=== PATIENT | male | born 2000 | race Caucasian/White ===

== ENCOUNTER 2021-11-20 19:19 | Emergency (ER) | payer MEDICAID, SELFPAY ==
[2021-11-20 19:24] VITALS: BP 135/85; PULSE 85; RESP 16; TEMP 36.4; O2SAT 98
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
[2021-11-20] MEDS: cephALEXin 500 mg Capsule PO (20:02)
[2021-11-20 20:20] VITALS: RESP 16
== END 2021-11-20 20:20 | disposition home or self-care (01) ==
PROVIDERS: Emergency Provider Nurse Practitioner Family; PCP Family Medicine
DX: S01.81XA Laceration without foreign body of other part of head, initial encounter (principal); Y04.2XXA Assault by strike against or bumped into by another person, initial encounter
CPT/HCPCS: 12011; 99283

== ENCOUNTER 2022-03-14 14:25 | Emergency (ER) | payer MEDICAID, SELFPAY ==
[2022-03-14 14:31] VITALS: BP 138/79; PULSE 90; RESP 17; TEMP 35.9; O2SAT 97
--- NOTE | 2022-03-14 14:32 | XR_ITS ---
WS: [id number] XR pelvis 1-2V* [id number] REASON FOR EXAM: retianed FB FINDINGS: The bony and soft tissue pelvis are unremarkable. No radiopaque foreign body projects over the lower abdomen or the pelvis. XR/XR pelvis 1-2V* [id number] IMPRESSION: No abnormality as above.
--- NOTE | 2022-03-14 14:32 | ECG_ITS ---
[facility] Test Date: 2022-03-14 Pat Name: Allan Flaherty Department: Room: Gender: Male Financial Services Associate: : [id number] Requested By: Eber Pool Order Number: [id number] Flora MD: Naman Nunez M.D. Measurements Intervals [place] Rate: 56 P: 148 IA: 169 QRS: 96 QRSD: 110 T: 115 QT: 386 QTc: 375 Interpretive Statements SINUS BRADYCARDIA ARM LEADS REVERSED [INVERTED P AND QRS IN I] No previous ECG available for comparison Electronically Signed On 03-14-2022 15:38:22 MULTICULTURAL SERVICES LIBRARIAN by Naamn Nunez M.D. [id number]
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
[2022-03-14 15:00] LABS: Basophils # 0.1 10^3/uL (0.0-0.1); Basophils % 0.4 %; Eosinophils # 0.1 10^3/uL (0.0-0.8); Eosinophils % 1.2 %; Hematocrit 45.2 % (42.0-52.0); Hemoglobin 15.2 g/dL (11.7-16.6); Lymphocytes # 1.1 10^3/uL (0.8-4.8); Lymphocytes % 9.3 %; Mean Corpuscular HGB Conc 33.6 g/dL (30.0-36.0); Mean Corpuscular Hemoglobin 29.1 pg (28.0-34.0); Mean Corpuscular Volume 86.4 fl (80-94); Mean Platelet Volume 9.1 fL (7.4-10.4); Monocytes # 0.7 10^3/uL (0.2-0.9); Monocytes % 6.2 %; Neutrophils % 82.6 %; Nucleated Red Blood Cells % 0 %; Platelet Count 301 10^3/cmm (130-400); Red Blood Count 5.23 10^6/uL (4.1-5.3); Red Cell Distribution Width 13.1 % (12.1-15.1); White Blood Count 11.9 10^3/uL (4.0-10.0)
[2022-03-14] MEDS: lactulose oral liq 20 gm/30 mL UDC 45 GM PO (15:26)
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
[2022-03-14 15:30] LABS: Anion Gap 13.4 (5-19); Blood Urea Nitrogen 17 mg/dL (6-20); Calcium 9.3 mg/dL (8.5-10.5); Carbon Dioxide 29 mmol/L (22-29); Chloride 98 mmol/L (98-107); Glomerular Filtration Rate 142.4 mL/min (90-130); Glucose 96 mg/dL (65-115); Osmolality Calculated 283 mOsm/kg (285-295); Potassium 4.4 mmol/L (3.5-5.1); Sodium 136 mmol/L (136-145)
[2022-03-14 15:40] VITALS: BP 152/91; RESP 16
== END 2022-03-14 15:41 | disposition home or self-care (01) ==
PROVIDERS: Emergency Provider Family Medicine; PCP Family Medicine
DX: T18.5XXA Foreign body in anus and rectum, initial encounter (principal); X58.XXXA Exposure to other specified factors, initial encounter
CPT/HCPCS: 36415; 72170; 80048; 85025; 93005; 99285

== ENCOUNTER 2022-03-15 11:53 | Day surgery (SDC) | payer MEDICAID, SELFPAY ==
[2022-03-15 11:54] VITALS: BMI 26.6
--- NOTE | 2022-03-15 11:59 | CT_ITS ---
WS: [id number] CT pelvis TECHNIQUE: Noncontrast CT of the pelvis with coronal and sagittal reformatted images. CLINICAL INFORMATION: rectal foreign body COMPARISON: None. DLP: 332.[address] scans at [facility] use at least one of these dose optimization techniques: automated e xposure control; mA and/or kV adjustment per patient size (includes targeted exams where dose is matc hed to clinical indication); or iterative reconstruction. FINDINGS: Moderate sigmoid colonic constipation. Evidence of prior appendectomy in the RIGHT lower quadrant. No free fluid in the pelvis. Tortuous sigmoid colon. No definite evidence of radiopaque foreign body. N o obstructing radiopaque objects. No inguinal lymphadenopathy. No other remarkable findings. CT/CT pelvis wo con [id number] IMPRESSION: Moderate sigmoid constipation. No evidence of radiopaque foreign body or obstru cting foreign body.
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
--- NOTE | 2022-03-15 14:43 | PM.CONSULT ---
Providers/Reason For Consult Consulting Physician/Specialty*: Raji Wright MD Reason for Consult*: Foreign body in the rectum Requesting Physician: Dr. Denny Primary Care Provider: Slade Grey MD History of Present Illness History of Present Illness Mr.Joseph Katherine Flaherty is a 21 year old male Presented to the emergency department with history of 25 to 26 hours ago allegedly had placed a Ziploc bag of Cocaine.Up his rectum, apparently the patient had presented to the emergency department yesterday and was sent home with Jimmy. He never had productive bowel movement with the Ziploc of question.Patient denies any abdominal pain or bleeding per rectum.No abnormality as above. A pelvic x-ray was done on 03/06/2022 that did show No abnormality as above. Today the patient undergone a CT of the pelvis; Moderate sigmoid colonic constipation. Evidence of prior appendectomy in the RIGHT lower quadrant. No free fluid in the pelvis. Tortuous sigmoid colon. No definite evidence of radiopaque foreign body. No obstructing radiopaque objects. No inguinal lymphadenopathy. No other remarkable findings. CT/CT pelvis wo con [id number] IMPRESSION: ? Moderate sigmoid constipation. No evidence of radiopaque foreign body or obstructing foreign body. ? General surgery was consulted for potential endoscopic intervention to retrieve the Ziploc bag of question. Patient Was seen in the emergency department room #14 in the presence of the Accompanying authority. Review of Systems General: Reports: 10 or more systems reviewed and unremarkable except in HPI and below Medications/Allergies Home Medications Medication Instructions Recorded Confirmed Last Taken Type lactulose 10 gram/15 mL oral 30 g (45 mL) PO Q2H 72 hours 03/14/22 Unknown Rx solution #1,620 mL Allergies Allergy/AdvReac Type Severity Reaction Status Date / Time No Known Allergies Allergy Verified 11/20/21 19:27 PFSH Acute PFSH: Medical History No pertinent past medical history Surgical History No pertinent past surgical history Vitals/I&O/Wt Weight last 48 hrs Weight 180 lb Physical Exam Narrative: Patient is conscious alert oriented X3 No apparent distress BMI 26.6 Head and neck examination PERRLA no masses no cervical lymphadenopathy no jaundice Cardiac examination audible S1-S2 no murmurs no gallops no arrhythmias Chest is clear bilateral,abscence of Rhonchi or wheezes,no surgical emphysema Abdomen nontender nondistended soft no organomegaly guarding or rigidity/no signs of peritonitis Extremities no cyanosis no clubbing no edema A&P Assessment and plan (1) FB anus/rectum: Plan of care; After thorough history and physical examination and reviewing the chart, plan to perform Flex sigmoidoscopy I discussed with the patient in details the risks,benefits,alternatives and indications.The risk of aspiration, bleeding, soft tissue injury, perforation of the colon ,missed lesions and other potential concomitant complications were explained to the patient in details,also the potential need for Laparoscoy/Laparotomy to repair any related complications including but not limited to colectomy and or Closotomy.The patient understood this well and did agree to proceed. Rationale was carefully and clearly discussed with the patient.Appropriate informed consent have been reviewed and signed. All questions have been answered and all concerns have been addressed to patient's satisfaction. Verbal and written Instructions were given to the patient for colonoscopy prep. Patient also understands the potential risk of any potential intoxication due to absorption of the alleged substance through his colonic mucosa that may end up in Toxicity and potential demise. Appropriate discussion of the case regarding its logistics was done with senior leadership of the hospital and recommendations per our security team was put in place.With the plan to handle the specimen To the appropriate authority. Consult Attestations Medical Necessity Statement: Outpatient Coding Level of Care Code Acute Double End Chucking Machine Operator for Chg Fwd Diagnoses FB anus/rectum T18.5XXA
--- NOTE | 2022-03-15 14:44 | P.ANESASSM_ITS ---
Pre-Anesthetic Assessment Height/Weight: Height 1.75 m Weight 81.647 kg Operation Date: 03/15/22 16:30 Proposed Procedures p Sigmoidoscopy with possible foreign body removal(Not Applicable) - Raij Wright MD Familial anesthetic complications: None Was Beta Deyanira taken within 24 hours: N/A Was Clonidine taken within 24 hours: N/A Last intake: 0500 Social Tobacco (vapes) and No alcohol Exam alert, oriented x 3, clear to auscultation bilaterally and regular rate & rhythm Airway Mallampati: Class I Dentition: full Anesthetic Plan ASA status: 1 Anesthesia: MAC Risk of > 500 ml blood loss (7ml/kg in children): No Medications/Allergies Home Medications Medication Instructions Recorded Confirmed Last Taken Type lactulose 10 gram/15 mL oral 30 g (45 mL) PO Q2H 72 hours 03/14/22 Unknown Rx solution #1,620 mL Allergies Allergy/AdvReac Type Severity Reaction Status Date / Time No Known Allergies Allergy Verified 11/20/21 19:27 [facility] Anesthesia Medical History (Updated 03/15/22 @ 12:59 by Leila Henao MD) No pertinent past medical history Surgical History (Updated 03/14/22 @ 16:04 by Eber Leiva DO) No pertinent past surgical history Data Anesthesia Cardiac Studies: No Data to Display
[2022-03-15 14:47] VITALS: BP 117/77; PULSE 73; O2SAT 95
--- NOTE | 2022-03-15 14:57 | PC.NURSE ---
Patient was transported to [facility] at this time.
[2022-03-15 15:03] VITALS: BP 139/69; PULSE 60; RESP 18; TEMP 36.1; O2SAT 97
[2022-03-15] MEDS: sodium chloride 0.9% 1,000 ML 30 ML IV (15:31)
--- NOTE | 2022-03-15 15:46 | SUR.OPER ---
foreign body removed, given to Anujop Sai russell, present in room
[2022-03-15 15:52] VITALS: BP 107/48; PULSE 65; RESP 16; TEMP 36.1; O2SAT 100
[2022-03-15 16:01] VITALS: BP 128/62; PULSE 80; RESP 16; O2SAT 100
--- NOTE | 2022-03-15 16:20 | ANE.PACU2 ---
Inpatient post-anesthesia follow up: Airway intact: Yes Vital signs: Temperature 97 F Pulse Rate 80 Respiratory Rate 16 Blood Pressure 128/62 Pulse Oximetry 100 Oxygen Delivery Me thod Room Air Oxygen Flow Rate Fraction of Inspir ed Oxygen Hydration adequate: Yes Nausea and vomiting: No Pain level: 1 Mental status: Baseline
--- NOTE | 2022-03-15 16:51 | ED_ITS ---
HPI - General Adult General: Chief complaint: General Medical Stated complaint: Forum Body Time Seen by Provider: 03/15/22 11:55 PFSH ED PFSH: Medical History No pertinent past medical history Surgical History No pertinent past surgical history Course Vital Signs: Vital signs: Vital Signs Temperature 97 F L 03/15/22 15:52 Pulse Rate 80 03/15/22 16:01 Respiratory Rate 16 03/15/22 16:01 Blood Pressure 128/62 03/15/22 16:01 Pulse Oximetry 100 03/15/22 16:01 Oxygen Delivery Me thod 03/15/22 16:01 MDM - General Adult Lab Data Radiology Impressions Pelvis CT 03/15/22 11:59 IMPRESSION: Moderate sigmoid constipation. No evidence of radiopaque foreign body or obstructing foreign body. Discharge Plan Discharge Patient Disposition: Still a Patient Clinical Impression: FB anus/rectum Condition: Stable Discharge Orders: Discharge Order (Routine); Ordered 03/15/22 Ordered By: Raji Wright Discharge Diet: Advance as tolerated Discharge Activity: Increase activity as tolerated Coding Level of Care Code ED Mechanical Door Repairer for Lolly Huggins
== END 2022-03-15 15:56 ==
LOC: ER 14:43 → GILAB 16:06 → ER 18:26 → GILAB 18:29
PROVIDERS: Emergency Provider Emergency Medicine; PCP Family Medicine; Visit Provider Surgery
PROC: 0DJD8ZZ Inspection of Lower Intestinal Tract, Via Natural or Artificial Opening Endoscopic (ICD-10-PCS; CPT 45330; principal; 2022-03-15 16:30)
DX: T18.5XXA Foreign body in anus and rectum, initial encounter (principal); F17.290 Nicotine dependence, other tobacco product, uncomplicated
CPT/HCPCS: 45332; 72192; J2704; J7030

== ENCOUNTER 2023-06-03 23:08 | Emergency (ER) | payer MEDICAID, SELFPAY ==
[2023-06-03 23:40] VITALS: BP 137/74; PULSE 71; RESP 18; TEMP 36.6; O2SAT 97; BMI 27.5
--- NOTE | 2023-06-03 23:53 | ED_ITS ---
HPI - Wound/Laceration General: Chief Complaint: Wound/Laceration Stated Complaint: Right hand Lac Time Seen by Provider: 06/03/23 23:26 Source: patient Mode of arrival: ambulatory Limitations: no limitations History of Present Illness: 22-year-old male states he had cut his r ight middle finger on a screen door this happened 3 hours ago he did superglue to it at home. He states he want to come in and have it checked he denies any pain currently he is unsure when his last tetanus was. Associated symptoms: Denies chills, fever(s), nausea or vomiting Review of Systems Const: Denies: fever(s), chills, body aches or change in appetite ENMT: Denies: throat pain or dental pain Card: Denies: chest pain Resp: Denies: dyspnea GI: Denies: abdominal pain, nausea, vomiting or diarrhea Musc: Denies: neck pain or back pain Skin/Breast: Denies: rash Neuro: Denies: headache(s) PFSH ED PFSH: Medical History No pertinent past medical history Surgical History No pertinent past surgical history Physical Exam Const: COMMON NORMALS: no acute distress, patient oriented x3 and healthy appearing HENMT: COMMON NORMALS: normocephalic and atraumatic HEAD & SCALP: normocephalic and atraumatic Eye: COMMON NORMALS: Equal, round and reactive pupils present and EOMs intact bilaterally PUPIL: Yes Equal, round and reactive pupils present Neck/C-Spine: COMMON NORMALS: full ROM Chest: COMMONS NORMALS: normal inspection of the chest Resp: COMMON NORMALS: normal respiratory effort Cardio: COMMON NORMALS: regular rate RATE: regular rate Extremity: COMMON NORMALS: full ROM NARRATIVE EXTREMITY EXAM: Laceration to distal tip of right middle finger bleeding is controlled he is placed a large amount of superglue over the laceration Neuro: COMMON NORMALS: patient oriented x3, moves all extremities and no focal motor deficits Psych: COMMON NORMALS: mental status grossly normal, Normal thought process present and cooperative THOUGHT PROCESS: Normal thought process present Skin: COMMON NORMALS: no rashes or lesions noted and no wounds GENERAL SKIN EXAM: no rashes or lesions noted Course Vital Signs: Vital signs: Vital Signs Temperature 97.8 F 06/03/23 23:40 Pulse Rate 71 06/03/23 23:40 Respiratory Rate 18 06/03/23 23:40 Blood Pressure 137/74 06/03/23 23:40 Pulse Oximetry 97 06/03/23 23:40 Oxygen Delivery Me thod Room Air 06/03/23 23:40 MDM - Wound/Laceration Medical Decision Making Patient presents with a finger laceration he is placed a large amount of superglue over the laceration not able to suture at this time his bleeding is co ntrolled we will place him on antibiotics prophylactically he is to return if any signs of infection did update his tetanus. Medical Records I reviewed the patient's medical records. No radiology studies performed this visit Discharge Plan Discharge Patient Disposition: Home Clinical Impression: Laceration Condition: Stable Prescriptions: New cephalexin 500 mg capsule 500 mg PO TID 7 Days Qty: 21 0RF Discharge Orders: Discharge ED (Routine); Ordered 06/03/23 Ordered By: Shane Hyman Referrals: Slade Grey MD [Primary Care Provider] - Discharge Diet: Advance as tolerated Discharge Activity: Resume usual activity Patient Instructions: Laceration (ED) Coding Level of Care Code ED Clinical Research Assistant for Lolly Huggins
[2023-06-04] MEDS: tetanus-dipt-pertussis 0.5 mL SDV IM (00:05)
[2023-06-04] MEDS: cephALEXin 500 mg Capsule PO (00:05)
== END 2023-06-04 00:09 | disposition home or self-care (01) ==
PROVIDERS: Emergency Provider Emergency Medicine; PCP Family Medicine
DX: S61.212A Laceration without foreign body of right middle finger without damage to nail, initial encounter (principal); W26.8XXA Contact with other sharp object(s), not elsewhere classified, initial encounter; Z23 Encounter for immunization
CPT/HCPCS: 90471; 90715; 99283